=== PATIENT | female | born 1985 | race Two or more races ===

== ENCOUNTER 2018-12-22 16:29 | Emergency (ER) | payer MEDICAID ==
[~2018-12-22] VITALS: Ht 152.4 cm; Wt 94.8 kg
[2018-12-22 17:11] LABS: Basophils # (auto) 0 uL; Basophils % (auto) 0.1 % (0.0-2.0); Eosinophils # (auto) 0.1 uL; Eosinophils % (auto) 0.6 % (0.0-7.0); Hematocrit 38.6 % (36.0-46.0); Hemoglobin 12.7 g/dL (12.2-16.2); Lymphocytes # (auto) 1.2 uL; Lymphocytes % (auto) 6.8 % (10.0-50.0); Mean Corpuscular Hemoglobin 29.9 pg (28.0-32.0); Mean Corpuscular Volume 90.7 fL (80.0-100.0); Monocytes # (auto) 1.3 uL; Monocytes % (auto) 7.9 % (0.0-12.0); Neutrophils # (auto) 14.4 uL; Neutrophils % (auto) 84.6 % (37.0-80.0); Platelet Count (auto) 356 10^3/uL (140-450); Red Blood Cells 4.26 10^6/uL (4.0-5.20); Red Cell Distribution Width 14.9 % (11.8-14.3); White Blood Cell 17.1 10^3/uL (4.4-10.8)
[2018-12-22 17:32] LABS: Albumin 3.4 g/dL (3.4-5.0); Calcium 8.4 mg/dL (8.5-10.1); Potassium 3.9 mmol/L (3.5-5.1)
[2018-12-22 17:36] LABS: BUN/Creatinine Ratio 13.4; Bilirubin, Total 0.3 mg/dL (0.2-1.0); Total Protein 6.8 g/dL (6.4-8.2)
[2018-12-22] MEDS ORDERED: MORPHINE SULFATE 4 MG/ML SYR/VIAL IV ONE (19:45)
[2018-12-22] MEDS ORDERED: CLINDAMYCIN 900MG IV 50 ML IV ONE (19:45)
[2018-12-22] MEDS ORDERED: ONDANSETRON HCL 4 MG/2 ML VIAL IV ONE (19:45)
[2018-12-22] MEDS ORDERED: SODIUM CHLORIDE 0.9% 1,000 ML IV ONE (20:00)
[2018-12-22] MEDS ORDERED: IOHEXOL 300 MG/ML 100ML BOTTLE IJ ONE (20:55)
[2018-12-23] VITALS: BP 136/82
== END 2018-12-23 01:47 | disposition home or self-care (01) ==
LOC: ER 16:29
DX: M65.132 Other infective (teno)synovitis, left wrist (principal); F17.210 Nicotine dependence, cigarettes, uncomplicated; I10 Essential (primary) hypertension; Z88.2 Allergy status to sulfonamides
CPT/HCPCS: 36415; 73130; 73201; 80053; 83605; 85025; 87040; 94761; 96365; 96366; 96375; 99284; J2270; J2405; J3490; J7030; Q9967

== ENCOUNTER → 2021-03-17 | Emergency (ER) | payer MEDICAID ==
[~2021-03-17] VITALS: Ht 152.4 cm; Wt 68.0 kg
[~2021-03-17] MED LIST: CEPH-322 PO; TRAM-297 PO; traMADol HCL 50 MG TAB PO ONE
[2021-03-17 18:43] VITALS: BP 140/90
== END | disposition home or self-care (01) ==
LOC: ER 18:13
DX: K02.9 Dental caries, unspecified (principal); I10 Essential (primary) hypertension; F17.210 Nicotine dependence, cigarettes, uncomplicated; Z88.2 Allergy status to sulfonamides
CPT/HCPCS: 70450

== ENCOUNTER 2021-09-23 09:33 | Emergency (ER) | payer MEDICAID ==
[~2021-09-23] VITALS: Ht 152.4 cm; Wt 84.2 kg
[~2021-09-23 09:33] MED LIST changes: -traMADol HCL 50 MG TAB PO ONE
[2021-09-23 10:37] LABS: Basophils # (auto) 0 10 ^3/uL (0-0.2); Basophils % (auto) 0.5 % (0.0-2.0); Eosinophils # (auto) 0 10 ^3/uL (0-0.8); Eosinophils % (auto) 0.6 % (0.0-7.0); Hematocrit 39.9 % (36.0-46.0); Hemoglobin 12.7 g/dL (12.2-16.2); Lymphocytes # (auto) 0.4 10 ^3/uL (0.4-5.4); Lymphocytes % (auto) 5.3 % (10.0-50.0); Mean Corpuscular Hemoglobin 27.3 pg (28.0-32.0); Mean Corpuscular Hgb Conc. 31.9 g/dL (32.0-36.0); Mean Corpuscular Volume 85.6 fL (80.0-100.0); Monocytes # (auto) 0.7 10 ^3/uL (0-1.3); Monocytes % (auto) 8.9 % (0.0-12.0); Neutrophils # (auto) 6.6 10 ^3/uL (1.6-8.6); Neutrophils % (auto) 84.7 % (37.0-80.0); Red Blood Cells 4.67 10^6/uL (4.0-5.20); Red Cell Distribution Width 16.1 % (11.8-14.3); White Blood Cell 7.8 10^3/uL (4.4-10.8)
[2021-09-23 10:54] LABS: Albumin 3.5 g/dL (3.4-5.0); Potassium 3.6 mmol/L (3.5-5.1)
[2021-09-23 10:56] LABS: Bilirubin, Total 0.2 mg/dL (0.2-1.0); Total Protein 7.4 g/dL (6.4-8.2)
[2021-09-23] MEDS ORDERED: KETOROLAC TROMETH 60MG/2ML VIAL IM ONE (11:15)
[2021-09-23] MEDS ORDERED: ONDANSETRON ODT 4 MG TAB PO ONE (11:15)
[2021-09-23] MEDS ORDERED: IBUP800T27 PO (12:15)
[2021-09-23] MEDS ORDERED: SULF400T11 PO (12:15)
[2021-09-23] MEDS ORDERED: PRED20TA2 PO (12:15)
[2021-09-23 12:21] VITALS: BP 126/74
[2021-09-23 12:22] LABS: Urine Bacteria FEW /hpf (None Seen); Urine Blood Negative /uL (Negative); Urine Mucus FEW (None Seen); Urine Specific Gravity 1.018 (1.001-1.035); Urine WBC 9 /hpf (0 - 5)
== END 2021-09-23 12:23 | disposition home or self-care (01) ==
LOC: ER 09:33
DX: J01.90 Acute sinusitis, unspecified (principal); I10 Essential (primary) hypertension; Z98.51 Tubal ligation status; Z88.2 Allergy status to sulfonamides
CPT/HCPCS: 36415; 70450; 80053; 81001; 85025; 93005; 96372; 99285; J1885; Q0162